=== PATIENT | female | born 1970 | race Caucasian/White ===

== ENCOUNTER 2021-10-11 03:43 | Emergency (ER) | payer SELFPAY ==
[~2021-10-11] VITALS: Ht 157.5 cm; Wt 43.7 kg
[2021-10-11] MEDS ORDERED: IBUP80TA PO (03:53)
[2021-10-11] MEDS ORDERED: DULC5TAB PO (03:53)
[2021-10-11] MEDS ORDERED: KETOROLAC 30 MG/ML 1ML VIAL IV ONE (04:15)
[2021-10-11] MEDS ORDERED: ONDANSETRON 4MG 2ML VIAL IV ONE ×2 (04:15→07:45)
[2021-10-11 04:30] LABS: BASO % 0.2 % (0.0-1.0); EOS % 0.1 % (0.0-3.0); HEMATOCRIT 40.4 % (36.0-47.0); HEMOGLOBIN 14.7 g/dl (12.0-15.5); LYMPH # 1.3 10^3/uL (1.5-5.0); LYMPH % 8.1 % (24.0-44.0); MEAN CORPUSCULAR HGB CONC 36.4 g/dl (32.0-36.5); MEAN CORPUSCULAR VOLUME 87.8 fl (80.0-96.0); MONO # 0.7 10^3/uL (0.0-0.8); MONO % 4.6 % (2.0-8.0); NEUTROPHILS # 13.4 10^3/uL (1.5-8.5); NEUTROPHILS % 86.4 % (36.0-66.0); PLATELET COUNT, AUTOMATED 265 10^3/uL (150-450); WHITE BLOOD COUNT 15.5 10^3/uL (4.0-10.0)
[2021-10-11] MEDS ORDERED: MORPHINE 4 MG/ML 1ML VIAL/SYRINGE As Ordered ONE (04:40)
[2021-10-11] MEDS ORDERED: MORPHINE 4 MG/ML 1ML VIAL/SYRINGE IV ONE ×2 (04:40→07:25)
[2021-10-11 04:49] LABS: HCG, SERUM QUALITATIVE NEGATIVE (NEGATIVE)
[2021-10-11 04:54] LABS: BLOOD UREA NITROGEN 17 MG/DL (7-18); CALCIUM LEVEL 10.2 MG/DL (8.5-10.1); CARBON DIOXIDE LEVEL 23 MEQ/L (21-32); CHLORIDE LEVEL 91 MEQ/L (98-107); CREATININE FOR GFR 1.25 MG/DL (0.55-1.30); GLOMERULAR FILTRATION RATE 47.9 (>51); GLUCOSE, FASTING 135 MG/DL (70-100); MAGNESIUM LEVEL 1.8 MG/DL (1.8-2.4); POTASSIUM SERUM 3.6 MEQ/L (3.5-5.1); SODIUM LEVEL 127 MEQ/L (136-145)
[2021-10-11 04:57] LABS: CK-MB VALUE MASS 1.2 NG/ML (<3.6); MB/CK RELATIVE INDEX 1.85 (< OR =4)
[2021-10-11] MEDS ORDERED: NS 1,000 ML IV ONE (05:15)
[2021-10-11] MEDS ORDERED: ISOVUE-370 76% 100ML VIAL As Ordered ONE (05:17)
[2021-10-11] MEDS ORDERED: MORPHINE 2 MG/ML 1ML VIAL IV ONE ×2 (05:45→07:05)
[2021-10-11 08:00] LABS: CK-MB VALUE MASS 1.8 NG/ML (<3.6); MB/CK RELATIVE INDEX 3.27 (< OR =4)
[2021-10-11] MEDS ORDERED: LIDOCAINE 1% MDV 20ML VIAL As Ordered ONE (08:38)
[2021-10-11] MEDS ORDERED: LIDOCAINE 1% MDV 20ML VIAL IM ONE (08:40)
[2021-10-11] MEDS ORDERED: niCARdipine IV 40 MG in IV 1 EA IV SCH (09:15)
[2021-10-11 09:47] LABS: COLOR, CSF RED (COLORLESS); CSF TUBE# CELL CNT TUBE 4
[2021-10-11 09:48] LABS: APPEARANCE, CSF CLOUDY (CLEAR)
[2021-10-11 09:50] LABS: APPEARANCE, CSF CLOUDY (CLEAR); COLOR, CSF RED (COLORLESS); CSF TUBE# CELL CNT TUBE 1
[2021-10-11 10:02] LABS: RSV AMPLIFICATION NEGATIVE (NEGATIVE)
[2021-10-11 10:03] LABS: CSF TUBE# GLU TUBE 2; CSF TUBE# TP TUBE 3; GLUCOSE CSF 40 MG/DL (40-75); TOTAL PROTEIN,CSF 666 MG/DL (15-45)
[2021-10-11] MEDS ORDERED: cefTRIAXone SOD 2 GM in D5W MINI-BAG PLUS 50 ML IV ONE (10:15)
[2021-10-11 10:35] VITALS: BP 123/80
[2021-10-11 14:10] LABS: HEP C VIRUS AB INDEX SOURCE PT < 0.0 INDEX (0.0-0.8); HEPATITIS B SURFACE ANTIGEN NEGATIVE (NEGATIVE)
[2021-10-11 14:20] LABS: HIV SCREEN CENTAUR SOURCE NEGATIVE (NEGATIVE)
== END 2021-10-11 10:49 | disposition short-term general hospital (02) ==
LOC: M ED 03:43
DX: U07.1 COVID-19 (principal); Z88.0 Allergy status to penicillin; Z88.5 Allergy status to narcotic agent; F17.200 Nicotine dependence, unspecified, uncomplicated
CPT/HCPCS: 51701; 62270; 70450; 71045; 71275; 72125; 74177; 80048; 82550; 82553; 82945; 83735; 84157; 84484; 84703; 85025; 85379; 86803; 87040; 87070; 87205; 87340; 87389; 87483; 87631; 89051; 93005; 93970; 96365; 96375; 96376; 99285; J0696; J1885; J2270; J2405; Q9967

== ENCOUNTER → 2022-06-24 | Outpatient (REF) ==
[~2022-06-24] MED LIST: DULC5TAB PO; IBUP80TA PO
== END ==
LOC: M PLAIMG 12:54
PROVIDERS: ATTEND Internal Medicine
DX: M54.9 Dorsalgia, unspecified (principal)